=== PATIENT | male | born 1995 | race Two or more races ===

== ENCOUNTER 2022-03-21 01:02 | Emergency (ER) | payer MEDICAID ==
[~2022-03-21] VITALS: Ht 167.6 cm; Wt 65.0 kg
[2022-03-21 02:07] VITALS: BP 134/67
== END 2022-03-21 05:21 | disposition home or self-care (01) ==
LOC: EMS 01:03
DX: F10.129 Alcohol abuse with intoxication, unspecified (principal)
CPT/HCPCS: 99283; Z7502